=== PATIENT | female | born 1950 | race Two or more races ===

== ENCOUNTER 2017-12-24 15:24 | Emergency (ER) | payer OTHER ==
[~2017-12-24] VITALS: Ht 170.2 cm; Wt 72.6 kg
[~2017-12-24 15:24] MED LIST: LISINOPRIL20 MG PO
[2017-12-24] MEDS ORDERED: CLARITIN10 M1 PO (17:49)
== END 2017-12-24 18:03 | disposition home or self-care (01) ==
LOC: ER 15:24
DX: R06.02 Shortness of breath (principal)

== ENCOUNTER 2018-02-12 16:23 | Emergency (ER) | payer OTHER ==
[~2018-02-12] VITALS: Ht 167.6 cm; Wt 68.0 kg
[~2018-02-12 16:23] MED LIST changes: +CLARITIN10 M1 PO
== END 2018-02-12 20:04 | disposition home or self-care (01) ==
LOC: ER 16:23
DX: R42 Dizziness and giddiness (principal); I63.8 Other cerebral infarction; M54.2 Cervicalgia

== ENCOUNTER 2018-05-05 08:38 | Emergency (ER) | payer OTHER ==
[~2018-05-05] VITALS: Ht 167.6 cm; Wt 66.2 kg
[2018-05-05] MEDS ORDERED: ASA81 MG PO (08:54)
[2018-05-05] MEDS ORDERED: AMLODIPINE BES2.5 MG PO (08:55)
[2018-05-05] MEDS ORDERED: CIPRO500 MG PO (08:55)
[2018-05-05] MEDS ORDERED: PLAVIX75 MG PO (08:55)
== END 2018-05-05 11:20 | disposition home or self-care (01) ==
LOC: ER 08:38
DX: M25.552 Pain in left hip (principal); R10.2 Pelvic and perineal pain

== ENCOUNTER 2018-06-20 23:27 | Emergency (ER) | payer OTHER ==
[~2018-06-20] VITALS: Ht 167.6 cm; Wt 68.0 kg
[~2018-06-20 23:27] MED LIST changes: +AMLODIPINE BES2.5 MG PO; +ASA81 MG PO; +CIPRO500 MG PO; +PLAVIX75 MG PO
[2018-06-20] MEDS ORDERED: ZOVIRAX200 MG (23:37)
[2018-06-21] MEDS ORDERED: CEFUROXIME500 MG PO (02:52)
== END 2018-06-21 03:03 | disposition home or self-care (01) ==
LOC: ER 23:27
DX: S60.412A Abrasion of right middle finger, initial encounter (principal); W26.0XXA Contact with knife, initial encounter; Y93.89 Activity, other specified; Y92.098 Other place in other non-institutional residence as the place of occurrence of the external cause; Y99.8 Other external cause status

== ENCOUNTER → 2018-06-29 | Emergency (ER) | payer OTHER ==
[~2018-06-29] VITALS: Ht 167.6 cm; Wt 68.0 kg
[~2018-06-29] MED LIST changes: +CEFUROXIME500 MG PO; +ZOVIRAX200 MG
== END | disposition left against medical advice (07) ==
LOC: ER 16:29
DX: Z53.20 Procedure and treatment not carried out because of patient's decision for unspecified reasons (principal)

== ENCOUNTER 2018-10-27 16:18 | Emergency (ER) | payer OTHER ==
[~2018-10-27] VITALS: Ht 167.6 cm; Wt 72.6 kg
[2018-10-27] MEDS ORDERED: PLAVIX75 MG (16:31)
== END 2018-10-27 19:00 | disposition home or self-care (01) ==
LOC: ER 16:18
DX: B34.9 Viral infection, unspecified (principal); R35.0 Frequency of micturition; J11.1 Influenza due to unidentified influenza virus with other respiratory manifestations

== ENCOUNTER 2023-04-12 22:35 | Emergency (ER) | payer OTHER ==
[~2023-04-12] VITALS: Ht 167.6 cm; Wt 72.6 kg
[~2023-04-12 22:35] MED LIST changes: +ECOTRIN81 MG; +PLAVIX75 MG
== END 2023-04-13 00:48 | disposition home or self-care (01) ==
LOC: ER 22:35
DX: S61.250A Open bite of right index finger without damage to nail, initial encounter (principal); W55.01XA Bitten by cat, initial encounter; Y93.89 Activity, other specified; Y92.89 Other specified places as the place of occurrence of the external cause; Z91.041 Radiographic dye allergy status
CPT/HCPCS: 90471; 90714; 96372; 99284; J0696; J1885

== ENCOUNTER 2024-04-01 11:25 | Emergency (ER) | payer OTHER ==
[~2024-04-01] VITALS: Ht 167.6 cm; Wt 60.8 kg
[2024-04-01 14:00] LABS: HEMATOCRIT 35.5 % (36.0-45.00); HEMOGLOBIN 12.1 g/dL (12.0-15.00); MEAN CELL VOLUME 82.4 fL (80.00-100.00); PLATELET COUNT 249 K/uL (150-450); RED BLOOD COUNT 4.31 M/uL (4.00-6.00); RED CELL DISTRIBUTION WIDTH 14.5 % (11.5-14.5)
[2024-04-01] MEDS ORDERED: OSEL75CA PO (15:36)
== END 2024-04-01 17:35 | disposition home or self-care (01) ==
LOC: ER 11:26
PROVIDERS: General Practice
DX: B34.9 Viral infection, unspecified (principal); R06.02 Shortness of breath; Z20.822 Contact with and (suspected) exposure to COVID-19; I10 Essential (primary) hypertension; Z91.041 Radiographic dye allergy status

== ENCOUNTER 2025-06-12 12:36 | Emergency (ER) | payer OTHER ==
[~2025-06-12] VITALS: Ht 167.6 cm; Wt 56.7 kg
[~2025-06-12 12:36] MED LIST changes: +OSEL75CA PO
[2025-06-12 13:18] VITALS: BP 133/79; O2SAT 99
[2025-06-12 15:05] LABS: BASO % 0.2 % (0.1-1.2); EOS # 0.02 (0.04-0.54); EOS % 0.4 % (0.7-7.0); LYMPH # 1.67 (1.18-3.74); LYMPH % 33.7 % (19.3-53.1); MEAN PLATELET VOLUME 11.00 fl (9.4-12.4); MONO # 0.24 (0.24-0.82); MONO % 4.8 % (4.7-12.5); NEUT # 2.99 (1.56-6.13); NEUT % 60.3 % (34.0-71.1); RED CELL DISTRIBUTION WIDTH 13.9 % (11.6-14.4)
[2025-06-12 15:42] LABS: INR 1.0
[2025-06-12 15:48] LABS: ALT/SGPT 25.0 U/L (12-78); AST/SGOT 20.0 U/L (15-37); BILIRUBIN TOTAL 0.48 mg/dL (0.3-1.2); BUN CREA RATIO 26.0 (7.0-25.0); CREATININE SERUM 0.65 mg/dL (0.55-1.02); GFR 88.86; GLOBULINA 3.3 G/DL (2.4-3.5); GLUCOSE FASTING 102.0 mg/dL (65-100); OSMOLALITY SERUM 285.0 MOSM/KG (275-295)
[2025-06-12 15:56] LABS: URINE APPEARANCE Clear; URINE BILIRRUBIN Negative (NEGATIVE); URINE BLOOD Moderate; URINE COLOR Yellow; URINE GLUCOSE Negative (NEGATIVE); URINE KETONE Trace (NEGATIVE); URINE LEUKOCYTE Trace; URINE NITRATE Negative; URINE PROTEIN Negative (NEGATIVE); URINE UROBILINOGEN 0.2 E.U./dl
[2025-06-12 16:00] LABS: URINE BACTERIA 69.7 uL (0.0-1933); URINE EPITHELIAL CELLS 15.4 uL (0.0-38.8); URINE RBC 78.8 uL (0.0-20.8); URINE WBC 7.3 uL (0.0-23.2)
[2025-06-12 16:02] LABS: URINE CAST 0.00 uL (0.0-1.40)
== END 2025-06-12 18:46 | disposition home or self-care (01) ==
LOC: ER 12:36
PROVIDERS: Student in an Organized Health Care Education/Training Program
DX: R22.43 Localized swelling, mass and lump, lower limb, bilateral (principal); S90.31XA Contusion of right foot, initial encounter; Z91.041 Radiographic dye allergy status